=== PATIENT | male | born 1975 | race African-American/Black ===

== ENCOUNTER 2017-08-31 10:47 | Emergency (ER) | payer SELFPAY ==
[2017-08-31 10:58] VITALS: BMI 21.9
[2017-08-31] MEDS ORDERED: SODIUM CHLORIDE 1,000 ML IV STA (11:17)
[2017-08-31] MEDS ORDERED: PANTOPRAZOLE SODIUM 40 MG in SODIUM CHLORIDE 100 ML IVPB ONE (11:18)
[2017-08-31] MEDS ORDERED: ONDANSETRON 4 MG/2 ML VIAL IVPB ONE ×2 (11:18→12:54)
--- NOTE | 2017-08-31 11:22 | PDOC ---
History of Present Illness - General Chief Complaint: Nausea/Vomiting Stated Complaint: nausea,vomiting Time Seen by Provider: 08/31/17 10:48 - History of Present Illness Initial Comments: 08/31/17 11:18 Chief complaint: Abdominal pain, nausea, vomiting, diarrhea History of present illness: Above symptoms for 2 days. Pain is mid abdominal, diffuse, without further localization. Review of systems: No hematemesis, melena, bloody stool, chest pain, shortness of breath, fever/chills, URI symptoms, sore throat, cough, urinary tract symptoms, visual or focal neurologic symptoms, unsteadiness of gait Past medical history: Dyspepsia, peptic ulcer disease, takes omeprazole and/or Zantac intermittently. Took Zantac yesterday. No other medical or surgical illnesses past or present. Social history: Occasional social alcohol, none recently. No tobacco or nonprescription drugs. 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 Family history: Reviewed and noncontributory including early coronary artery disease, metabolic disease including diabetes, GI disease, cancer Physical exam: Alert and oriented well-developed well-nourished no acute distress cooperative Afebrile, vital signs normal except for mildly elevated blood pressure No pallor or icterus. PERRLA, fundi benign, ENT clear Neck supple without bruit mass or nodes Chest clear to P&A, full breath sounds bilaterally, no wheezes rales or rhonchi CV S1 and S2 normal without murmur rub or gallop pulses full and symmetric no JVD or edema no bruits Abdomen nondistended. Bowel sounds normal. Soft without mass or organomegaly. There is mild tenderness in the mid abdomen to deep palpation, no guarding or rebound, no localization to either the lower quadrants Skin clear, no rash, adequate turgor and wet mucous membranes Neurological intact Extremities no CCE Impression: Probable viral gastroenteritis, superimposed on chronic peptic ulcer disease. No sign of GI bleeding Plan: CBC, chemistry, lipase, IV fluids, proton pump inhibitor and anti-emetic. Observe. Past History - Past Medical History Allergies/Adverse Reactions: Allergies Allergy/AdvReac Type Severity Reaction Status Date / Time No Known Allergies Allergy Verified 08/31/17 10:48 Home Medications: Ambulatory Orders Acetaminophen W/ Codeine #3 [Tylenol # 3] 2 combo PO Q4H PRN #20 tablet MDD 8 Ondansetron [Zofran Odt -] 4 - 8 mg SL TID PRN #15 od.tablet 08/31/17 Pantoprazole Sodium [Protonix -] 40 mg PO DAILY #15 tablet.ec 08/31/17 COPD: No - Suicide/Smoking/Psychosocial Hx Smoking History: Never smoked Have you smoked in the past 12 months: No Information on smoking cessation initiated: No Hx Alcohol Use: No Drug/Substance Use Hx: No Substance Use Type: Alcohol *Physical Exam - Vital Signs Last Vital Signs Temp Pulse Resp BP Pulse Ox 98.5 F 60 20 148/111 60 L 08/31/17 10:47 08/31/17 10:47 08/31/17 10:47 08/31/17 10:47 08/31/17 10:47 ED Treatment Course - LABORATORY CBC & Chemistry Diagram: 08/31/17 11:30 08/31/17 11:30 Medical Decision Making - Medical Decision Making 08/31/17 13:14 CBC, chemistries without significant abnormalities Patient still with nausea and intermittent crampy abdominal pain. Consider a small dose of morphine and Imodium to mitigate the cramps. 08/31/17 14:22 Patient condition is improved. No further retching or vomiting. Intermittent crampy abdominal pain is improved but still intermittently present. Blood pressure is still mildly elevated, probably due to discomfort, but he is advised to have it rechecked when his condition is improved. *DC/Admit/Observation/Transfer Diagnosis at time of Disposition: Viral gastroenteritis - Discharge Dispostion Disposition: HOME Condition at time of disposition: Improved Admit: No - Prescriptions Prescriptions: Acetaminophen W/ Codeine #3 [Tylenol # 3] 2 combo PO Q4H PRN #20 tablet MDD 8 PRN Reason: Pain Ondansetron [Zofran Odt -] 4 - 8 mg SL TID PRN #15 od.tablet PRN Reason: Nausea And/Or Vomiting Pantoprazole Sodium [Protonix -] 40 mg PO DAILY #15 tablet.ec - Referrals - Patient Instructions Printed Discharge Instructions: DI for Viral Gastroenteritis -- Adult Additional Instructions: Blood pressure is mildly elevated and should be rechecked after your illness has resolved. Please see your family physician to monitor your blood pressure to ensure that it returns to normal levels. - Post Discharge Activity Forms/Work/School Notes: Back to Work
[2017-08-31] MEDS ORDERED: PANTOPRAZOLE SODIUM 40 MG VIAL ONE (11:33)
[2017-08-31] MEDS ORDERED: ONDANSETRON 4 MG/2 ML VIAL ONE ×2 (11:33→12:54)
[2017-08-31 12:00] LABS: BASO % 1.3 % (0-2.0); EOS % 0.9 % (0-4.5); HEMATOCRIT 41.3 % (35.4-49); HEMOGLOBIN 14.2 GM/dl (11.7-16.9); LYMPH % 20.1 % (8-40); MCHC 34.5 g/dl (32.0-35.9); MEAN CELL VOLUME 92.9 fl (80-96); MEAN PLT VOLUME 7.9 fl (7.5-11.1); MONO % 7.7 % (3.8-10.2); PLATELET COUNT 245 K/MM3 (134-434); RBC 4.44 M/mm3 (4.00-5.60); RDW 12.3 % (11.9-15.9); WHITE BLOOD COUNT 6.4 K/mm3 (4.0-10.8)
[2017-08-31 12:28] LABS: ALBUMIN 4.4 g/dl (3.5-5.0); ALK PHOS 49 U/L (32-92); ANION GAP 6 (8-16); BLOOD UREA NITROGEN 17 mg/dl (7-18); CALCIUM 9.1 mg/dl (8.4-10.2); CHLORIDE 102 mmol/L (98-107); CO2 27 mmol/L (22-28); CREATININE 1.3 mg/dl (0.6-1.3); GLUCOSE,RANDOM 104 mg/dl (74-106); POTASSIUM 3.9 mmol/L (3.5-5.1); SGOT/AST 33 U/L (10-42); SGPT/ALT 19 U/L (10-40); SODIUM 135 mmol/L (136-145); TOT PROT 7.9 g/dl (6.4-8.3)
[2017-08-31 12:35] LABS: BILIRUBIN,TOTAL 0.6 mg/dl (0.2-1.0)
[2017-08-31] MEDS ORDERED: morphine CARPU-JECT 2 MG/1 ML DISP.SYRIN IVPUSH ONE (13:13)
[2017-08-31] MEDS ORDERED: LOPERAMIDE HCL 2 MG CAPSULE PO ONE (13:14)
[2017-08-31] MEDS ORDERED: LOPERAMIDE HCL 2 MG CAPSULE ONE (13:18)
[2017-08-31] MEDS ORDERED: morphine CARPU-JECT 2 MG/1 ML DISP.SYRIN ONE (13:18)
[2017-08-31 14:20] VITALS: BP 141/101; PULSE 64; TEMP 98.3
== END 2017-08-31 14:50 | disposition home or self-care (01) ==
LOC: FER 10:47
DX: A08.4 Viral intestinal infection, unspecified (principal); B97.89 Other viral agents as the cause of diseases classified elsewhere
CPT/HCPCS: 36415; 80053; 83690; 85025; 99282-25; J7030